=== PATIENT | male | born 1945 | race Caucasian/White ===

== ENCOUNTER 2016-08-09 00:02 | Inpatient (IN) | payer MEDICARE, OTHER ==
[~2016-08-09] VITALS: Ht 175.3 cm; Wt 129.8 kg
--- NOTE | ~2016-08-09 | CON ---
PATIENT'S NAME: MARICEL HURLEY [facility] AGE: 71 Y [address] ROOM: G3311 [place], [place] [address] LOCATION: G3N ADMIT DATE: 08/09/2016 Consultation DISCHARGE DATE: FAMILY PHYSICIAN: Hugh Khan PA-C ATTENDING PHYSICIAN: PIERRE BUSH DATE OF CONSULTATION: 08/09/2016 REFERRING PHYSICIAN: Aníbal Jha MD REASON FOR CONSULTATION: Small bowel obstruction. HISTORY OF PRESENT ILLNESS: Maricel Hurley is a 71-year-old male who was admitted early this morning with findings of a small bowel obstruction. The patient states that he had developed sharp pain around the periumbilical region followed by nausea and vomiting. His was unable to assist him and therefore they called the ambulance which brought him to the emergency room for evaluation. Evaluation in the emergency room included an x-ray that showed a nonobstructive bowel gas pattern. This was followed up with a CT scan of the abdomen and pelvis, which showed dilated air and fluid-filled loops of proximal and mid small bowel present, with the distal ileum being decompressed. Findings were consistent with a distal small bowel obstruction. A small amount of free pelvic fluid was also present. There were 2 very small, fat-containing anterior abdominal wall hernias present. The patient was admitted by the hospitalist. An NG tube was placed to suction with an output of 1800 mL overnight. This morning, the patient states that he is feeling okay, although he will still have pain if he moves around too much. He is not passing any gas. His last bowel movement was yesterday morning. The patient states that he had a similar episode about 2 months ago. He states that he has suffered through it at home with dry heaving and this improved on its own. The patient has had 5 prior hernia repairs done, the first one was done in [place] and he had Staph infection postoperatively, they allowed it to heal in secondarily; and then he had a ventral hernia repair done I believe in [place]. He subsequently presented and saw Dr. Jha and had his gallbladder removed along with hernia repair. This was repaired again by Dr. Jha with mesh. His last operation was by Dr. Nash for what sounds like an incarcerated incisional hernia which again was repaired with mesh. The patient states that he occasionally has constipation. Denies any blood in the stool, although he does have hemorrhoids and will occasionally see some blood on the toilet paper. He has never had a full colonoscopy done. He states that he has had 2 flexible sigmoidoscopies done with the [facility]. PATIENT'S NAME: MARICEL HURLEY [facility] AGE: 71 Y [address] ROOM: [place] [address] LOCATION: [facility] ADMIT DATE: 08/09/2016 Consultation DISCHARGE DATE: FAMILY PHYSICIAN: Hugh Khan PA-C ATTENDING PHYSICIAN: PIERRE BUSH PAST MEDICAL HISTORY: ALLERGIES: DIPHENHYDRAMINE AND TYLENOL. HOME MEDICATIONS: 1. Allopurinol 100 mg p.o. daily. 2. Vasotec 5 mg p.o. daily. 3. Vitamin D3 400 units p.o. daily. 4. Naproxen 220 mg p.o. b.i.d. p.r.n. pain. 5. Lasix 40 mg p.o. daily. ILLNESSES: Include hypertension, pulmonary hypertension, history of diverticulosis. OPERATIONS: As noted in the HPI include 5 hernia repairs with mesh utilized at least twice and cholecystectomy. SOCIAL HISTORY: The patient is . Lives in [place]. He quit smoking in 1986. He rarely consumes alcohol. FAMILY HISTORY: Mother had breast cancer and heart disease. REVIEW OF SYSTEMS: CONSTITUTIONAL: The patient denies any recent coughs or colds. No shortness of breath or chest pain. GI: See HPI. : The patient denies any problems urinating. PHYSICAL EXAMINATION: VITAL SIGNS: Temperature is 98.3, blood pressure 157/70, pulse 66, and respirations 24. GENERAL: Obese 71-year-old male who is alert, pleasant, cooperative. Eyes, EARS, NOSE, THROAT: NG tube is in place; otherwise, grossly normal. LUNGS: Clear. HEART: Regular. ABDOMEN: Has hypoactive bowel sounds. Abdomen has mild distention, but soft with no peritoneal signs. Mild tenderness, right mid abdomen. He has a well- healed scar in the midline with no obvious hernia appreciated on exam. LABORATORY WORK: CBC from today shows white blood cell count 14.1, hemoglobin 17.1, hematocrit PATIENT'S NAME: ALEXI HURLEYMIHaylee Villareal [facility] AGE: 71 Y [address] ROOM: [address] [address] LOCATION: [facility] ADMIT DATE: 08/09/2016 Consultation DISCHARGE DATE: FAMILY PHYSICIAN: Hugh Khan PA-C ATTENDING PHYSICIAN: PIERRE BUSH 48.6, and platelets 157. Renal shows sodium 145, potassium 4.5, chloride 112, CO2 24, glucose 145, BUN 24, and creatinine 1.0. Magnesium 2.2. Lactate was 2.3. Procalcitonin less than 0.05. UA showed 100 leukocytes, 2-5 white blood cells, negative bacteria. CT scan per HPI. ASSESSMENT: A 71-year-old male with, 1. Less than 24-hour history of abdominal pain, nausea, and vomiting with CT scan suggestive of a distal small bowel obstruction. 2. History of 5 prior ventral hernia repairs with mesh utilized at least twice. 3. Pulmonary hypertension. 4. Hypertension. PLAN: Dr. Jha recommended that we continue with conservative treatment for an additional 24 hours to see if this will get better on its own. We will continue with the NG tube to suction. He encouraged the patient mobilize. If this does not release on its own with conservative treatment, then we will consider proceeding with surgery tomorrow morning. I discussed potential for laparoscopy versus laparotomy. Discussed risks and benefits of bleeding, infection, injury to other structures, heart problems, lung problems, etc. An echocardiogram is being obtained by the hospitalist with a history of pulmonary hypertension. The patient was in understanding and agreement with the plan. Again, he will mobilize as tolerated today. If no improvement by tomorrow, we will plan to proceed with surgery. Dr. Jha examined the patient, was involved in assessment and plan, and was available for supervision. TRINITY RICARDO PA-C FOR MD ANGEL GOSS/alyssia /[id number] d: 08/09/16 1859 t: 08/24/16 1141, CONSULTATION REPORT
--- NOTE | ~2016-08-09 | ER ---
PATIENT'S NAME: [facility] AGE: 71 Y [address] ROOM: [place] [address] LOCATION: [facility] ADMIT DATE: 08/09/2016 ER/Outpatient Report DISCHARGE DATE: FAMILY PHYSICIAN: PHYSICIAN, UNKNOWN ATTENDING PHYSICIAN: PIERRE BUSH TIME OF ARRIVAL: 0002 hours. TIME OF EVALUATION: 0002 hours. CHIEF COMPLAINT: Abdominal pain. HISTORY OF PRESENT ILLNESS: The patient is a 71-year-old male who presents to the emergency department today with a chief complaint of abdominal pain. He reports this started around noon today and progressively gotten worse. He reports some nausea as well as some vomiting. Denies any diarrhea or constipation. Does report he has not been passing gas. Denies any fevers or chills. He has a sharp pain in the midepigastric region. It is currently 4/10 in severity. PAST MEDICAL HISTORY: Diverticulosis, small-bowel obstruction, and left atrial enlargement. PAST SURGICAL HISTORY: Hernia repair x5, cholecystectomy. SOCIAL HISTORY: The patient quit smoking in 1988 and denies any alcohol or illicit drug use. ALLERGIES: BENADRYL. MEDICATIONS: Please see list. PRIMARY CARE DOCTOR: ABY. REVIEW OF SYSTEMS: All systems are reviewed by myself are negative with the exception of those discussed in HPI and past medical history. PATIENT'S NAME: [facility] AGE: 71 Y [address] ROOM: [place] [address] LOCATION: [facility] ADMIT DATE: 08/09/2016 ER/Outpatient Report DISCHARGE DATE: FAMILY PHYSICIAN: PHYSICIAN, UNKNOWN ATTENDING PHYSICIAN: PIERRE BUSH PHYSICAL EXAMINATION: VITAL SIGNS: Weight 130.4 kg, blood pressure 140/64, pulse 60, respiratory rate 18, temperature 95.9, and oxygen saturation 93% on room air. GENERAL: The patient is a 71-year-old male who appears his stated age in mild acute distress, secondary to pain in his abdomen. HEENT: Normocephalic, atraumatic. Pupils are equal, round, and reactive to light. NECK: Supple. There is no nuchal rigidity. CARDIOVASCULAR: Regular rate and rhythm. No murmurs, rubs, or gallops. LUNGS: Clear to auscultation bilaterally. No wheezes, rales, or rhonchi. ABDOMEN: Soft, mildly distended. There is moderate tenderness to palpation diffusely. There is no rebound, there is no rigidity, there is some voluntary guarding. MUSCULOSKELETAL: The patient moves all 4 extremities. SKIN: Warm and dry. LABS AND X-RAYS: Lactate is normal. CBC: White blood cell count 15.4, hemoglobin 17.7, otherwise unremarkable. Coags are normal. CMP is unremarkable. LFTs normal. Lipase is normal. CK is normal. CK-MB is 3.9. Troponin is less than 0.04. Urinalysis shows 100 leuk esterase, 2-5 wbc's, negative bacteria. Procalcitonin is less than 0.05. CT scan of the abdomen and pelvis is obtained with IV contrast. I have discussed results with the [facility] and it does reveal moderate distal small-bowel obstruction involving the ileum. There is a transition point noted. There is no bowel containing hernia noted. IMPRESSION: 1. Moderate distal small-bowel obstruction of the ileum. 2. Leukocytosis. 3. Initial visit. EMERGENCY DEPARTMENT COURSE: The patient brought back to the examination room. Seen and evaluated by myself. IV is established. Laboratory analysis and imaging are obtained as described above. The patient is given 100 mcg of fentanyl and 4 mg of Zofran IV en route by EMS. He is given another 50 mg of fentanyl and 4 mg of Zofran here and a repeat dose of fentanyl given 50 mcg IV. He has been given 0.5 mg of Dilaudid and 0.5 mg of Ativan IV and NG tube is placed. I have discussed results with the patient. I have recommended admission to the hospital for further evaluation, treatment, and management. I have contacted Dr. Bush with the Hospitalist Service who does agree to accept the patient for further evaluation, treatment, and management. He will contact surgery for consultation. PATIENT'S NAME: MARICEL HURLEY [facility] AGE: 71 Y [address] ROOM: [id number] [place] [id number] LOCATION: [facility] ADMIT DATE: 08/09/2016 ER/Outpatient Report DISCHARGE DATE: FAMILY PHYSICIAN: PHYSICIAN, UNKNOWN ATTENDING PHYSICIAN: PIERRE BUSH DISPOSITION: The patient is admitted under the care of Dr. Bush, the Hospitalist Service, in stable condition. DO BABAR CARPIO/alyssia /[id number] d: 08/09/16 0342 t: 08/09/16 0420, OUTPATIENT REPORT
--- NOTE | ~2016-08-09 | ECHO ---
Transthoracic Echocardiography Report (TTE) Demographics Patient Name MARICEL HURLEY Date of Study 08/09/2016 Patient Number [id number] Visit Number [id number] Date of 1945 Room Number G3311 Accession Number [id number] Gender Male Age 71 year(s) Referring Annabella Rai MD Tractor Drill Operator Karol Betancur RVT Physician Physician Ade Sepulveda MD Special Programs Director Physician Carlyle Morse MD Supervising Ordering Physician Annabella Rai MD, MD/MLP Nurse Stress Patrol Officer Conclusions Contractility Score Summary Normal Left Ventricular contractility was noted. Summary Technically difficult exam. Normal LV/RV size and systolic function. The estimated left ventricular ejection fraction is 55-60%. Moderate concentric left ventricular hypertrophy. The left atrium is mildly dilated. Diastolic flow assessment reveals a pseudonormal pattern consistent with Grade II diastolic dysfunction . There is moderate aortic regurgitation by color Doppler. Procedure Type of Study TTE procedure:2D Echocardiogram. Procedure Date Date: 08/09/2016 Start: 11:07 AM Study Location: Inpatient Portable Technical Quality: Limited visualization due to body habitus. Indications:Pulmonary hypertension. Appropriate Use Criteria: 9 Patient Status: STAT HR: 66 bpm M-Mode/2D Measurements LV Diastolic Dimension: 5.75 cm LV Systolic Dimension: 4.06 cm LV Septum Diastolic: 2.08 cm LV PW Diastolic: 1.58 cm AO Root Dimension: 3.2 cm Cardiac Output: 4.39 l/min AV Cusp Separation: 2.2 cm LVOT: 2.3 cm RV Base: 2.67 cm LVOT VTI: 16 cm RV Mid: 2.29 cm LV Stroke volume: 66.44 ml TAPSE: 1.24 cm TDI-S': 12.3 cm/s Doppler Measurements AV Peak Velocity: 1.92 m/s MV Peak E-Wave: 1.46 m/s AV Peak Gradient: 14.75 mmHg MV Peak A-Wave: 1.07 m/s AV Mean Gradient: 7 mmHg MV E/A Ratio: 1.36 LVOT Peak Velocity: 0.74 m/s MV P1/2t: 130 msec AV P1/2t: 412 msec TR Gradient:14.29 mmHg PV Peak Velocity: 1.54 m/s PV Peak Gradient: 9.49 mmHg E' Septal Velocity: 0.05 m/s A' Septal Velocity: 0.11 m/s E' Lateral Velocity: 0.09 m/s A' Lateral Velocity: 0.19 m/s Findings Left Ventricle Moderate concentric left ventricular hypertrophy. Diastolic assessment reveals Grade II pseudonormal diastolic function . Right Ventricle Normal right ventricular size and function. Left Atrium The left atrium is mildly dilated. Right Atrium Normal right atrial size. IVC not visualized due to poor subcostal window. Mitral Valve Trivial mitral regurgitation by color Doppler. Mild mitral annular calcification. Mild calcification of the mitral valve. Aortic Valve There is moderate aortic regurgitation by color Doppler. Tricuspid Valve Mild tricuspid regurgitation by color Doppler. Pulmonic Valve Trivial pulmonic valve regurgitation by color Doppler. Pericardial Effusion Possible trivial pericardial effusion. Miscellaneous The ascending aorta maximum diameter measures 3.6 cm. Pleural Effusion No evidence of pleural effusion. Contractility Score LV regional wall motion:(0-Non visualized 1-Normal 2-Hypokinesis 3-Akinesis 4-Dyskinesis 5-Aneurysm) Signature dtt: GEORGINA MARSHALL dtd: 08/09/16 1107 Physician Self Edit
--- NOTE | ~2016-08-09 | HP ---
PATIENT'S NAME: MARICEL HURLEY [facility] AGE: 71 Y [address] ROOM: [address] [address] LOCATION: [facility] ADMIT DATE: 08/09/2016 History & Physical DISCHARGE DATE: FAMILY PHYSICIAN: PHYSICIAN, UNKNOWN ATTENDING PHYSICIAN: PIERRE BUSH DATE OF SERVICE: CHIEF COMPLAINT: Abdominal pain and nausea and vomiting. HISTORY OF PRESENT ILLNESS: This is a 71-year-old male who says that roughly around 5 p.m. yesterday after he had a meal, he started developing abdominal pain in the mid abdominal area and he described the pain as a vague pain that is constant, about 6 to 7/10 in intensity without radiation. At the same time, he also had around 3 to 5 episodes of bilious vomiting. Last time he passed flatus was yesterday morning. Last time he had a bowel movement was also yesterday morning and it was normal. Last time he ate a meal was last night around 5 p.m. and that is when the abdominal pain started. He says that he had a similar episode of the nausea, vomiting, and mid abdominal pain roughly 2 months ago. At that time, he did not go to see any physician and the symptoms eventually went away by itself, but now the symptom has recurred since yesterday and it is getting worse, that is why he came here for evaluation. No chest pain. No shortness of breath. He denies any other symptoms. The patient does have fairly significant intra-abdominal surgery in the past including five abdominal hernia surgery in the past according to the patient, last one was 10 years ago and he also had a cholecystectomy according to the patient and he also has had 2 episodes of small bowel obstruction, last time he had was roughly 10 years ago, and at that time, it was secondary to the previous five times of abdominal hernia in the past. REVIEW OF SYSTEMS: As mentioned in the history of present illness. All other system review are negative except those mentioned in the history of present illness. PAST MEDICAL HISTORY: 1. Hypertension. 2. History of gout in the past. ALLERGIES: BENADRYL WHICH CAUSES HIVES. HOME MEDICATIONS: PATIENT'S NAME: ALEXI HURLEYMIHaylee Villareal [facility] AGE: 71 Y [address] ROOM: [address] [address] LOCATION: [facility] ADMIT DATE: 08/09/2016 History & Physical DISCHARGE DATE: FAMILY PHYSICIAN: PHYSICIAN, UNKNOWN ATTENDING PHYSICIAN: PIERRE BUSH 1. Allopurinol 100 mg p.o. daily. 2. Vitamin D3, 400 units p.o. daily. 3. Enalapril 5 mg p.o. daily. 4. Lasix 40 mg p.o. daily. 5. Naproxen 220 mg p.o. b.i.d. p.r.n. for pain or fever. SOCIAL HISTORY: The patient was a former cigarette smoker about one pack per day for 20 years and he quit in 1986. He was an occasional alcohol drinker, sometimes a heavy drinker but when he was very young and that was on and off and he quit already many years ago. The patient denies any illegal drug use. PAST SURGICAL HISTORY: 1. Status post 5 abdominal hernia surgeries in the past, last time was 10 years ago. 2. Status post cholecystectomy. 3. Status post 2 episodes of prior small bowel obstruction secondary to the history of a previous abdominal hernia surgery in the past. Last time he had a small bowel obstruction was 10 years ago. FAMILY HISTORY: Father had CABG at an old age and mother had a cardiac stent placed also at an old age. PHYSICAL EXAMINATION: VITAL SIGNS: Vital signs at the time of my dictation, temperature 98.3, heart rate 66, respirations 24, blood pressure 157/70, saturation 90% on room air. GENERAL APPEARANCE: Alert and oriented x3. In no acute distress. HEENT: Pupils are equally round and reactive to light. Extraocular muscles intact. Nasal turbinates are normal bilaterally. Moist oral mucosa. NECK: No JVD. CARDIOVASCULAR: Regular rate and rhythm. Normal S1, S2. No murmur, no rubs, no gallops. RESPIRATORY: Very faint bibasilar crackles. No wheezing, no rhonchi, no rales. ABDOMEN: Obese, distended, soft, tenderness to palpation about 4/10 in intensity in the mid abdominal area around supraumbilical area. No abdominal rigidity. No signs or findings to suggest peritonitis. Bowel sounds are decreased. No palpable mass. EXTREMITIES: No edema in upper or lower extremities. NEUROLOGICAL: Grossly nonfocal. SKIN: No ulcer, no rash, no cyanosis. MUSCULOSKELETAL: No joint pain. No muscle pain. Range of motion intact. LABORATORY DATA: PATIENT'S NAME: MARICEL HURLEY [facility] AGE: 71 Y [address] ROOM: [address] [place], [place] [address] LOCATION: [facility] ADMIT DATE: 08/09/2016 History & Physical DISCHARGE DATE: FAMILY PHYSICIAN: PHYSICIAN, UNKNOWN ATTENDING PHYSICIAN: PIERRE BUSH Lactic acid is 0.9. Troponin less than 0.04. CPK is 303. White blood cell 15.4, hemoglobin 17.7, hematocrit of 50.1, MCV 93.8, platelet 162. Glucose 143, BUN 26, creatinine 1.0, sodium 143, potassium 3.9, chloride 110, CO2 of 23, calcium 8.9. Total protein 7.1, albumin 3.6, AST 23, ALT 32, alkaline phosphatase 100, total bilirubin 0.8. Phosphorus 4.0. Magnesium 2.3. GFR more than 60. Anion gap 13.9. Globulin 3.5. INR 0.93, PTT 25. Urinalysis negative for UTI. Procalcitonin less than 0.05. CK-MB 3.9. Lipase 114. IMAGING STUDY: CT abdomen and pelvis with IV contrast on admission, the preliminary report was read as moderate distal small-bowel obstruction with transition involving the ileum in the right mid abdomen possibly due to adhesions. No bowel containing hernia. Colonic diverticulosis without diverticulitis. ASSESSMENT AND PLAN: 1. Regarding his moderate distal small-bowel obstruction with transition point involving the ileum in the right mid abdomen possibly due to adhesions based on the CT of abdomen and pelvis with IV contrast, preliminary report: N.p.o. NG tube suctioning. Pain control with IV morphine p.r.n. and IV fentanyl p.r.n. Nausea control with IV Zofran p.r.n. IV fluids, I will give him D5 half-normal saline, 20 mEq potassium chloride, running at 100 mL/h and will titrate to replace the NG tube fluid loss. Repeat KUB and lactic acid and CBC with differential and basic metabolic panel and also magnesium and phosphorus early in the morning. Replace electrolytes as necessary. Depending on his clinical course, General Surgery could be consulted if necessary. Please follow up with the official report of CT abdomen and pelvis. 2. Regarding his hypertension: Currently hold blood pressure medication given that the patient is on NG tube suctioning, and if the blood pressure is out of control, then the blood pressure medication can be resumed in IV form. 3. Deep venous thrombosis prophylaxis. Compression devices for now in case the General Surgery will need to be involved in the care. 4. Code status. He is a full code. Time spent in care on the day of admission 35 minutes including chart review, interviewing the patient, examining the patient, addressing all the questions and concerns that the patient had, and going over the plan of care with the patient and nurses. The patient is in agreement with the plan and further plan will depend on his clinical course and also will be decided by the medical provider taking over the care of this patient starting on 08/09/2016 at 8 a.m. when shift changes. Further plan depends on clinical course. PATIENT'S NAME: MARICEL HURLEY [facility] AGE: 71 Y [address] ROOM: [place] [address] LOCATION: [facility] ADMIT DATE: 08/09/2016 History & Physical DISCHARGE DATE: FAMILY PHYSICIAN: PHYSICIAN, UNKNOWN ATTENDING PHYSICIAN: PIERRE BUSH MD CC/modl /[id number] D: [id number] T: 002 HISTORY & PHYSICAL
--- NOTE | ~2016-08-09 | HP ---
PATIENT'S NAME: MARICEL HURLEY [facility] AGE: 71 Y [address] ROOM: [address] [address] LOCATION: [facility] ADMIT DATE: 08/09/2016 History & Physical DISCHARGE DATE: FAMILY PHYSICIAN: PHYSICIAN, UNKNOWN ATTENDING PHYSICIAN: PIERRE BUSH DATE OF SERVICE: CHIEF COMPLAINT: Abdominal pain and nausea and vomiting. HISTORY OF PRESENT ILLNESS: This is a 71-year-old male who says that roughly around 5 p.m. yesterday after he had a meal, he started developing abdominal pain in the mid abdominal area and he described the pain as a vague pain that is constant, about 6 to 7/10 in intensity without radiation. At the same time, he also had around 3 to 5 episodes of bilious vomiting. Last time he passed flatus was yesterday morning. Last time he had a bowel movement was also yesterday morning and it was normal. Last time he ate a meal was last night around 5 p.m. and that is when the abdominal pain started. He says that he had a similar episode of the nausea, vomiting, and mid abdominal pain roughly 2 months ago. At that time, he did not go to see any physician and the symptoms eventually went away by itself, but now the symptom has recurred since yesterday and it is getting worse, that is why he came here for evaluation. No chest pain. No shortness of breath. He denies any other symptoms. The patient does have fairly significant intra-abdominal surgery in the past including five abdominal hernia surgery in the past according to the patient, last one was 10 years ago and he also had a cholecystectomy according to the patient and he also has had 2 episodes of small bowel obstruction, last time he had was roughly 10 years ago, and at that time, it was secondary to the previous five times of abdominal hernia in the past. REVIEW OF SYSTEMS: As mentioned in the history of present illness. All other system review are negative except those mentioned in the history of present illness. PAST MEDICAL HISTORY: 1. Hypertension. 2. History of gout in the past. ALLERGIES: BENADRYL WHICH CAUSES HIVES. HOME MEDICATIONS: PATIENT'S NAME: ALEXI HURLEYMIHaylee Villareal [facility] AGE: 71 Y [address] ROOM: [address] [address] LOCATION: [facility] ADMIT DATE: 08/09/2016 History & Physical DISCHARGE DATE: FAMILY PHYSICIAN: PHYSICIAN, UNKNOWN ATTENDING PHYSICIAN: PIERRE BUSH 1. Allopurinol 100 mg p.o. daily. 2. Vitamin D3, 400 units p.o. daily. 3. Enalapril 5 mg p.o. daily. 4. Lasix 40 mg p.o. daily. 5. Naproxen 220 mg p.o. b.i.d. p.r.n. for pain or fever. SOCIAL HISTORY: The patient was a former cigarette smoker about one pack per day for 20 years and he quit in 1986. He was an occasional alcohol drinker, sometimes a heavy drinker but when he was very young and that was on and off and he quit already many years ago. The patient denies any illegal drug use. PAST SURGICAL HISTORY: 1. Status post 5 abdominal hernia surgeries in the past, last time was 10 years ago. 2. Status post cholecystectomy. 3. Status post 2 episodes of prior small bowel obstruction secondary to the history of a previous abdominal hernia surgery in the past. Last time he had a small bowel obstruction was 10 years ago. FAMILY HISTORY: Father had CABG at an old age and mother had a cardiac stent placed also at an old age. PHYSICAL EXAMINATION: VITAL SIGNS: Vital signs at the time of my dictation, temperature 98.3, heart rate 66, respirations 24, blood pressure 157/70, saturation 90% on room air. GENERAL APPEARANCE: Alert and oriented x3. In no acute distress. HEENT: Pupils are equally round and reactive to light. Extraocular muscles intact. Nasal turbinates are normal bilaterally. Moist oral mucosa. NECK: No JVD. CARDIOVASCULAR: Regular rate and rhythm. Normal S1, S2. No murmur, no rubs, no gallops. RESPIRATORY: Very faint bibasilar crackles. No wheezing, no rhonchi, no rales. ABDOMEN: Obese, distended, soft, tenderness to palpation about 4/10 in intensity in the mid abdominal area around supraumbilical area. No abdominal rigidity. No signs or findings to suggest peritonitis. Bowel sounds are decreased. No palpable mass. EXTREMITIES: No edema in upper or lower extremities. NEUROLOGICAL: Grossly nonfocal. SKIN: No ulcer, no rash, no cyanosis. MUSCULOSKELETAL: No joint pain. No muscle pain. Range of motion intact. LABORATORY DATA: PATIENT'S NAME: MARICEL HURLEY [facility] AGE: 71 Y [address] ROOM: [address] [place], [place] [address] LOCATION: [facility] ADMIT DATE: 08/09/2016 History & Physical DISCHARGE DATE: FAMILY PHYSICIAN: PHYSICIAN, UNKNOWN ATTENDING PHYSICIAN: PIERRE BUSH Lactic acid is 0.9. Troponin less than 0.04. CPK is 303. White blood cell 15.4, hemoglobin 17.7, hematocrit of 50.1, MCV 93.8, platelet 162. Glucose 143, BUN 26, creatinine 1.0, sodium 143, potassium 3.9, chloride 110, CO2 of 23, calcium 8.9. Total protein 7.1, albumin 3.6, AST 23, ALT 32, alkaline phosphatase 100, total bilirubin 0.8. Phosphorus 4.0. Magnesium 2.3. GFR more than 60. Anion gap 13.9. Globulin 3.5. INR 0.93, PTT 25. Urinalysis negative for UTI. Procalcitonin less than 0.05. CK-MB 3.9. Lipase 114. IMAGING STUDY: CT abdomen and pelvis with IV contrast on admission, the preliminary report was read as moderate distal small-bowel obstruction with transition involving the ileum in the right mid abdomen possibly due to adhesions. No bowel containing hernia. Colonic diverticulosis without diverticulitis. ASSESSMENT AND PLAN: 1. Regarding his moderate distal small-bowel obstruction with transition point involving the ileum in the right mid abdomen possibly due to adhesions based on the CT of abdomen and pelvis with IV contrast, preliminary report: N.p.o. NG tube suctioning. Pain control with IV morphine p.r.n. and IV fentanyl p.r.n. Nausea control with IV Zofran p.r.n. IV fluids, I will give him D5 half-normal saline, 20 mEq potassium chloride, running at 100 mL/h and will titrate to replace the NG tube fluid loss. Repeat KUB and lactic acid and CBC with differential and basic metabolic panel and also magnesium and phosphorus early in the morning. Replace electrolytes as necessary. Depending on his clinical course, General Surgery could be consulted if necessary. Please follow up with the official report of CT abdomen and pelvis. 2. Regarding his hypertension: Currently hold blood pressure medication given that the patient is on NG tube suctioning, and if the blood pressure is out of control, then the blood pressure medication can be resumed in IV form. 3. Deep venous thrombosis prophylaxis. Compression devices for now in case the General Surgery will need to be involved in the care. 4. Code status. He is a full code. Time spent in care on the day of admission 35 minutes including chart review, interviewing the patient, examining the patient, addressing all the questions and concerns that the patient had, and going over the plan of care with the patient and nurses. The patient is in agreement with the current plan and further plan will depend on his clinical course. PATIENT'S NAME: MARICEL HURLEY [facility] AGE: 71 Y [address] ROOM: [place] [address] LOCATION: [facility] ADMIT DATE: 08/09/2016 History & Physical DISCHARGE DATE: FAMILY PHYSICIAN: PHYSICIAN, UNKNOWN ATTENDING PHYSICIAN: PIERRE BUSH MD CC/modl /[id number] D: [id number] T: [id number] HISTORY & PHYSICAL
--- NOTE | ~2016-08-09 | DS ---
PATIENT'S NAME: MARICEL HURLEY [facility] AGE: 71 Y [address] ROOM: [id number] [place], [place] [address] LOCATION: [facility] ADMIT DATE: 08/09/2016 Discharge Summary DISCHARGE DATE: 08/11/2016 FAMILY PHYSICIAN: Hugh Khan PA-C ATTENDING PHYSICIAN: Bar Winchester FINAL DIAGNOSES: 1. Small-bowel obstruction, resolved. 2. Essential hypertension. 3. History of gout. CONSULTANTS ON THE CASE: Dr. Jha, General Surgery. HISTORY OF PRESENT ILLNESS: Please see details of admission in H and P by Dr. Winchester. Briefly, the patient was admitted with findings suggesting small bowel obstruction. NG was placed. The patient was placed on IV morphine and Zofran for symptomatic control. The next morning, the patient continued to have significant output from the NG as well as nausea with the morphine infusion. The patient's morphine was discontinued. He did receive Dilaudid IV for optimal pain control. General Surgery was then consulted at that time. It was felt that the patient could safely be treated in a conservative manner. On the night of hospital day #2, the patient did have dislodgement of the NG tube. It was deemed at that time not to re-insert it secondary to patient preference. The patient started having positive flatus, and his bowel pain did significantly improve. Because of the potential for surgery, the patient was optimized and perioperative evaluation included a 2D echo for possible history of pulmonary hypertension as well as diuretic use and assessment of overall cardiovascular function. On hospital day #2, the patient continued to improve. He did not have any further nausea or vomiting. His abdominal pain was well controlled. His abdominal pain had abated. It was felt at this time if the patient could tolerate a regular diet, he could safely be discharged without any further workup. The patient was able to consume a regular diet and was discharged on 08/11/2016 in stable condition. DIAGNOSTICS: Radiology report: CT of the abdomen and pelvis with contrast on 08/09/2016 showed consistent findings of distal small bowel obstruction, duodenal diverticulum, and diverticulosis without evidence of diverticulitis. KUB on the showed nonobstructive bowel gas pattern. Chest x-ray on the showed streaky right basilar atelectasis/infiltrate present. NG present with the tip in the region of the mid stomach. Left lung clear. No pleural effusions or pneumothorax. Laboratory Data: Lactate on admission was 0.9, it climbed to 2.3 and back down to 1.1. On admission, sodium 143, potassium 3.9, chloride 110, bicarb 23, glucose 143, BUN 26, creatinine 1.0. Cardiac enzymes were within normal PATIENT'S NAME: MARICEL HURLEY [facility] AGE: 71 Y [address] ROOM: [address] [address] LOCATION: [facility] ADMIT DATE: 08/09/2016 Discharge Summary DISCHARGE DATE: 08/11/2016 FAMILY PHYSICIAN: Hugh Khan PA-C ATTENDING PHYSICIAN: Bar Winchester. Prior to discharge, phosphorus declined to 2.0 and was adequately replaced. The rest of his labs remained stable. White blood cell count on admission was 15.4, but trended down to 9.5. Urinalysis within normal limits. DISCHARGE INSTRUCTIONS: The patient is discharged home. Diet is as tolerated. Activity: No heavy lifting or straining noted. [facility] as outlined. General Surgery did recommend the patient undergo full colonoscopy for further evaluation as the patient has never had one. The patient was able to verbalize understanding of these discharge instructions and was discharged in stable condition. DISCHARGE MEDICATIONS: 1. Allopurinol 100 mg p.o. daily. 2. Vitamin D3, 400 units daily. 3. Vasotec 5 mg daily. 4. Lasix 40 mg daily. We do appreciate participating in this patient's care. Thank you very much for the ability to serve him while hospitalized at [facility]. Time spent coordinating details of discharge was 37 minutes of which was spent coordinating with consulting physician and Care Management, completion of medication, reconciliation, education to the patient and family on the above- mentioned diagnoses. NASREEN LOGAN FOR SADAF GUTIERREZ MD SILVERIO/modl /[id number] d: 08/12/16 0234 t: 08/24/16 1642, DISCHARGE SUMMARY
[2016-08-09 00:22] LABS: BASOPHIL # 0.1 K/uL (0.0-0.2); BASOPHIL % 0.5 %; EOSINOPHIL # 0.1 K/uL (0.0-0.5); EOSINOPHIL % 0.8 %; HEMATOCRIT 50.1 % (37.0-53.0); HEMOGLOBIN 17.7 g/dL (11.0-16.0); IMMATURE GRANULOCYTE # 0.1 K/uL (0.0-0.3); IMMATURE GRANULOCYTE % 0.5 %; LYMPHOCYTE % 6.6 %; MCH 33.1 pg (27.0-34.0); MCHC 35.3 gm/dL (32.0-36.5); MCV 93.8 fl (83.0-98.0); MONOCYTE # 0.8 K/uL (0.0-1.0); MONOCYTE % 5.5 %; MPV 10.2 fl (9.4-12.4); NEUTROPHIL # (ANC) 13.3 K/uL (1.4-9.0); NEUTROPHIL % 86.1 %; NRBC % 0 /100WBC (0-0.00); PLATELET COUNT 162 K/uL (150-450); RBC 5.34 M/uL (3.50-5.50); RDW-CV 12.7 % (11.9-14.6); WBC 15.4 K/uL (4.0-11.0)
[2016-08-09 00:34] LABS: INR - (THERAPEUTIC) 0.93 (0.92-1.07); PROTIME 9.8 SECONDS (9.8-11.4); PTT 25 SECONDS (25-32)
[2016-08-09 00:42] LABS: ALBUMIN 3.6 gm/dL (3.5-5.0); ALK PHOS 100 IU/L (33-138); ALT 22 IU/L (12-78); ANION GAP 13.9 (10.0-19.0); AST 23 IU/L (10-40); BLOOD UREA NITROGEN 26 mg/dL (6-24); CALCIUM 8.9 mg/dL (8.5-10.5); CHLORIDE 110 mMol/L (96-110); CO2 23 mMol/L (22-32); CPK 303 IU/L (35-332); ESTIMATED GFR (MDRD EQUATION) > 60; POTASSIUM 3.9 mMol/L (3.7-5.1); SODIUM 143 mMol/L (135-145); TOTAL BILIRUBIN 0.8 mg/dL (0.0-1.5); TOTAL PROTEIN 7.1 g/dL (6.0-8.4)
[2016-08-09 00:53] LABS: BILIRUBIN URINE NEGATIVE (NEGATIVE); BLOOD URINE NEGATIVE /UL (NEGATIVE); COLOR URINE YELLOW (YELLOW); GLUCOSE URINE NEGATIVE (NEGATIVE); KETONE URINE NEGATIVE (NEGATIVE); LEUKOCYTES URINE 100 /UL (NEGATIVE); NITRITE URINE NEGATIVE (NEGATIVE); PROTEIN URINE 15 mg/dL (NEGATIVE); TURBIDITY URINE 1+ (CLEAR); UROBILINOGEN URINE 1 mg/dL (NORMAL)
[2016-08-09 01:00] LABS: BACTERIA URINE NEGATIVE (NEGATIVE); EPITHELIAL URINE 0-2 #/HPF (NEGATIVE); RBC URINE RARE #/HPF (NEGATIVE)
[2016-08-09] MEDS ORDERED: ZYLOPRIM100 MG PO (02:49)
[2016-08-09] MEDS ORDERED: VASOTEC5 MG PO (02:49)
[2016-08-09] MEDS ORDERED: ALEVE220 MG PO (02:50)
[2016-08-09] MEDS ORDERED: VITAMIN D-40400 UNIT PO (02:50)
[2016-08-09] MEDS ORDERED: LASIX40 MG PO (02:53)
[2016-08-09 02:59] LABS: MAGNESIUM 2.3 mg/dL (1.8-2.6)
--- NOTE | 2016-08-09 03:31 | NUR ---
Patient admitted to the floor at 0230. Patient states he started having acute sharp abd pains that were intermittent yesterday afternoon with nausea and vomiting x 1. Has a history of multiple bowel obstructions in the past. Stated he had an episode of abd pain with nausea a couple of months ago, but did not go to the doctor. Stated the pain with this episode much worse. Has had 5 hernia surgeries in the past. Patient has an NG tube to the left nare that was placed in ER. A saline lock to left AC placed by associate professor of counseling. Patient oriented to room and call light.
--- NOTE | 2016-08-09 05:42 | NUR ---
Shift Summary: Patient admitted at 0230 for a small bowel obstruction. NG to lower intermittent suction. Has had a total of 1800ml out of NG and 600ml in emesis. Morphine IV given at 0512. Abd distended with no bowel sounds. He can ambulate with standby assist. Is CAH[place]LL[place] but does not have his hearing aides here. Will have a KUB this am.
[2016-08-09 08:16] LABS: HEMATOCRIT 48.6 % (37.0-53.0); HEMOGLOBIN 17.1 g/dL (11.0-16.0); MCH 33.1 pg (27.0-34.0); MCHC 35.2 gm/dL (32.0-36.5); MCV 94.2 fl (83.0-98.0); MPV 10.2 fl (9.4-12.4); PLATELET COUNT 157 K/uL (150-450); RBC 5.16 M/uL (3.50-5.50); RDW-CV 12.6 % (11.9-14.6); WBC 14.1 K/uL (4.0-11.0)
[2016-08-09 08:26] LABS: ANION GAP 13.5 (10.0-19.0); BLOOD UREA NITROGEN 24 mg/dL (6-24); CALCIUM 8.2 mg/dL (8.5-10.5); CHLORIDE 112 mMol/L (96-110); CO2 24 mMol/L (22-32); ESTIMATED GFR (MDRD EQUATION) > 60; MAGNESIUM 2.2 mg/dL (1.8-2.6); PHOSPHORUS 2.5 mg/dL (2.5-4.9); POTASSIUM 4.5 mMol/L (3.7-5.1); SODIUM 145 mMol/L (135-145)
[2016-08-09 09:56] LABS: ABSOLUTE NEUTROPHIL CT (ANC) 13.1 K/uL (1.4-9.0); BANDED NEUTROPHILS % 21 %; LYMPHOCYTE # 0.4 K/uL (0.8-4.0); LYMPHOCYTE % 3 %; MONOCYTE # 0.4 K/uL (0.0-1.0); SEGMENTED NEUTROPHIL # 10.2 K/uL (1.4-9.0); SEGMENTED NEUTROPHIL % 72 %
--- NOTE | 2016-08-09 10:00 | NUR ---
Introduced self/role to patient and his Bethanie, they live in [place]. [facility] Currently seeing a PA, Justin Khan in [place]. No family doctor. He was completely independent prior to this hospitalization. If bowel obstruction resolves itself he doesn't anticipate any needs. They do have a walker from 's knee surgeries. Wrote my name on his marker board, will continue to follow.
--- NOTE | 2016-08-09 19:23 | NUR ---
Significant Event: HAD 500 ML OUT DWAIN BERRY IN [place]. AMBUL IN [place] X2 TOLERATED WELL...ABD SOFTER THIS AFTERNOON. NG TO LOW INTERMIT SUCTION. HAD 200 ML EMSIS AFTER HAVING MORPHINE THIS AM. IS PASSING FLATUS...REMAINS NPO... Follow up:
--- NOTE | 2016-08-10 03:58 | NUR ---
Significant Event: Patient was found to have his NG pulled out this AM at 0315. Patient admitted to pulling the NG tube out on purpose because his throat hurt. Patient has choloraspetic spray at bedside. Patient refuses to allow nursing staff to place NG back in. Has had 1100 out prior to pulling it out. MD was called and ordered to place NG tube back in if patient allows. Hypoactive bowel sounds. Patient states that he is passing gas. NPO. 1 assist. Voids without difficulty. Walked the halls x1. Follow up:
[2016-08-10 04:37] LABS: BASOPHIL % 0.3 %; EOSINOPHIL # 0.2 K/uL (0.0-0.5); HEMOGLOBIN 15.5 g/dL (11.0-16.0); IMMATURE GRANULOCYTE % 0.3 %; LYMPHOCYTE # 1.1 K/uL (0.8-4.0); LYMPHOCYTE % 11.2 %; MCH 32.4 pg (27.0-34.0); MCHC 33.7 gm/dL (32.0-36.5); MCV 96.2 fl (83.0-98.0); MONOCYTE # 0.8 K/uL (0.0-1.0); MONOCYTE % 8.6 %; MPV 10.1 fl (9.4-12.4); NEUTROPHIL # (ANC) 7.4 K/uL (1.4-9.0); NEUTROPHIL % 77.6 %; NRBC % 0 /100WBC (0-0.00); PLATELET COUNT 149 K/uL (150-450); RBC 4.78 M/uL (3.50-5.50); RDW-CV 12.8 % (11.9-14.6); WBC 9.5 K/uL (4.0-11.0)
[2016-08-10 04:47] LABS: ALBUMIN 2.9 gm/dL (3.5-5.0); BLOOD UREA NITROGEN 19 mg/dL (6-24); CALCIUM 7.7 mg/dL (8.5-10.5); CHLORIDE 112 mMol/L (96-110); CO2 28 mMol/L (22-32); CREATININE 0.9 mg/dL (0.6-1.3); ESTIMATED GFR (MDRD EQUATION) > 60
[2016-08-10 04:48] LABS: ANION GAP 10.1 (10.0-19.0); MAGNESIUM 2.1 mg/dL (1.8-2.6); POTASSIUM 4.1 mMol/L (3.7-5.1); SODIUM 146 mMol/L (135-145)
--- NOTE | 2016-08-10 15:40 | NUR ---
Followed up with patient as he was walking in the hallway. He was hoping to go home tomorrow. Denied any discharge needs.
--- NOTE | 2016-08-10 20:32 | NUR ---
Significant Event: UP IN ROOM AMBUL IN HALLWAY, TOLERATED ACTIVITY WELL. PASSING FLATUS, REPORTS HAD SMALL BM WHICH WAS BOTH FORMED AND LLIQUID. ABD ROUND SOFT BS PRESENT...TAKING CLEAR LIQID DIET WELL. Follow up:
--- NOTE | 2016-08-11 05:00 | NUR ---
Significant Event: Alert/oriented x3. Up ad estela in room. Saline locked Powerglide IV after Potassium was infused. Possible dismissal today. 2 BMs. No N/V. VSS, CSM WNL. No complaints of pain. Bowel sounds present all 4 quadrants. Voids sufficient amount. Follow up:
--- NOTE | 2016-08-11 13:50 | NUR ---
Patient AOx3. VSS. Bowel sounds x4. Had moderate BM this morning. Up walking halls. Patient had regular diet for lunch and had no problems. [facility] at 1345.
== END 2016-08-11 13:45 | disposition disaster alternative care site (69) | DRG 389 ==
LOC: GMED 00:02 → G3N 02:02
PROVIDERS: Emergency Medicine; ADMIT Internal Medicine
DX: K56.60 Unspecified intestinal obstruction (principal); I50.32 Chronic diastolic (congestive) heart failure; I27.2 Other secondary pulmonary hypertension; Z68.41 Body mass index [BMI] 40.0-44.9, adult; E66.01 Morbid (severe) obesity due to excess calories; I11.0 Hypertensive heart disease with heart failure; M10.9 Gout, unspecified; Z87.891 Personal history of nicotine dependence
CPT/HCPCS: C1751; J1170; J1940; J2060; J2270; J2405; J3010; J3480; J7030; J7060; Q9967